=== PATIENT | male | born 1965 | race African-American/Black ===

== ENCOUNTER 2021-09-17 13:49 | Emergency (ER) | payer SELFPAY ==
[~2021-09-17] VITALS: Ht 165.1 cm; Wt 66.0 kg
[2021-09-17] MEDS ORDERED: KETOROLAC 60 MG/2 ML VIAL. IM ONE (16:00)
[2021-09-17] MEDS ORDERED: HYDROcodone/APAP 5/325MG 1 TAB TABLET PO ONE (16:00)
--- NOTE | 2021-09-17 16:34 | RAD ---
CT lumbar spine without contrast History: Back pain Axial helical images of the lumbar spine were obtained without contrast. Axial, coronal and sagittal reconstruction was performed. Findings: The vertebral bodies are aligned. There is no loss of vertebral body stature. Evaluation of the central canal is limited without contrast. There is diffuse circumferential disc bulge and hypertrophy of the facets and ligamentum flavum resul ting in mild central stenosis at L2-L3 and minimal central stenosis at L3-L4 and L4-L5. There is mode rate narrowing of multiple neuroforamen below the level of the exiting nerve roots. Impression: Mild degenerative changes. Mo acute findings. End impression PQRS Compliance Statement: One or more of the following individualized dose reduction techniques were utilized for this examinat ion: 1. Automated exposure control 2. Adjustment of the mA and/or kV according to patient size 3. Use of iterative reconstruction technique Electronically signed by: Romaine Collins III, MD (09/17/2021 4:32 PM) [facility]
--- NOTE | 2021-09-17 16:51 | RAD ---
AP pelvis and left hip AP lateral x-rays HISTORY: Fall, left hip pain. FINDINGS: No fracture. No dislocation. No arthritic change. No bone lesion evident. The soft tissues are unremarkable. IMPRESSION: No acute osseous injury. Electronically signed by: Garrett Gar MD (09/17/2021 4:49 PM) [facility]
--- NOTE | 2021-09-17 16:56 | RAD ---
EXAM: AP, oblique, lateral and sunrise views of the left knee. DATE: 09/17/2021 4:34 PM INDICATION: Reason: Fall. Left knee pain / Spl. Instructions: / History: COMPARISON: No Prior FINDINGS: No acute fracture or dislocation. No joint effusion. Mild medial compartment joint space with small tricompartmental osteophytes. Neutral patellar tracking. IMPRESSION: No acute fracture or dislocation. Moderate left knee joint osteoarthritis. Electronically signed by: Saw Petersen MD (09/17/2021 4:53 PM) [facility]
[2021-09-17 17:22] VITALS: BP 141/88
[2021-09-17] MEDS ORDERED: IBUP-1007 PO (17:29)
[2021-09-17] MEDS ORDERED: CYCL10TA2 PO (17:29)
[2021-09-17] MEDS ORDERED: HYDR-2761 PO (17:29)
--- NOTE | 2021-09-17 17:31 | PHYS DOC ---
Past Medical History Past Surgical History: Other Additional Past Surgical Histo: hernia, bilat wrist repairs Smoking Status: Current Every Day Smoker Alcohol Use: Occasionally General Adult EDM: Chief Complaint: MECHANICAL FALL HPI: HPI: Patient is a [age]-year-old male who presents to the emergency department reporting falling at a local convenience store. Patient reports pain to his left knee, left hip, and low back. Patient denies loss of consciousness or hitting his head. Patient denies other physical complaints or physical concerns Review of Systems: Review of Systems: 14 body systems of review of systems have been reviewed. See HPI for pertinent positives and negative responses, otherwise all other systems are negative, nonpertinent or noncontributory. Constitutional: Negative except as outlined in HPI above. Skin: Negative except as outlined in HPI above. Eyes: Negative except as outlined in HPI above. HENT: Negative except as outlined in HPI above. Respiratory: Negative except as outlined in HPI above. Cardiovascular: Negative except as outlined in HPI above. GI: Negative except as outlined in HPI above. : Negative except as outlined in HPI above. Musculoskeletal: Negative except as outlined in HPI above. Integument: Negative except as outlined in HPI above. Neurologic: Negative except as outlined in HPI above. Endocrine: Negative except as outlined in HPI above. Lymphatic: Negative except as outlined in HPI above. Psychiatric: Negative except as outlined in HPI above. Heart Score: C/O Chest Pain: No Risk Factors: Risk Factors: DM, Current or recent (<one month) smoker, HTN, HLP, family h istory of CAD, obesity. Risk Scores: Score 0 - 3: 2.5% MACE over next 6 weeks - Discharge Home Score 4 - 6: 20.3% MACE over next 6 weeks - Admit for Clinical Observation Score 7 - 10: 72.7% MACE over next 6 weeks - Early Invasive Strategies Current Medications: Current Medications Medications (Trade) Dose Ordered Sig/Luz Elena Start Time Stop Time Status Last Admin Dose Admin Acetaminophen/ Hydrocodone Bitart (Lortab 5/325) 2 tab 1X ONCE 09/17/21 16:00 09/17/21 16:01 DC 09/17/21 16:04 2 TAB Ketorolac Tromethamine (Toradol Im) 60 mg 1X ONCE 09/17/21 16:00 09/17/21 16:01 DC 09/17/21 16:03 60 MG Allergies: Allergies: Allergies Coded Allergies Type Severity Reaction Last Updated Verified No Known Drug Allergies 09/17/21 No Physical Exam: PE: Constitutional: Well developed, well nourished, no acute distress, non-toxic appearance. 56-year-old male in no apparent distress. Patient is complaint of pain exceeds patient's physical appearance and presentation. HENT: Normocephalic, atraumatic. No contusions to the scalp head or face appreciated. No raccoon eyes, no mcguire's sign, no drainage from bilateral external auditory canals, bilateral TMs within normal limits. Eyes: Conjunctiva normal, no discharge. Satisfactory 6 cardinal eye movements. Neck: Normal range of motion, no stridor. No midline spinal pain Cardiovascular: No cyanosis appreciated, distal cap refill less than 2 seconds. Lungs & Thorax: Patient is in no respiratory distress, no audible adventitious lung sounds appreciated. Abdomen: Nontender, no abnormalities noted. Skin: Warm, dry, no erythema, no rash. Back: No deformities appreciated, no crepitus appreciated, midline spinal pain at lumbar area to palpation, no crepitus appreciated. No bruising appreciated. No step-offs or deformities appreciated. Extremities: No tenderness, no cyanosis, no clubbing, ROM intact, no edema. Pain to left hip and left knee to palpation, limited passive range of motion related to pain. No contusions appreciated. No swelling or edema appreciated. Distal cap refill less than 2 seconds, 2+ dorsalis pedis/posterior tibial pulse. No loss of sensation distally. No instability of the knee joint appreciated with knee joint tests. Neurologic: Alert and oriented X 3, normal motor function, normal sensory function, no focal deficits noted. Psychologic: Affect normal, judgement normal, mood normal. Current Patient Data: Vital Signs: Vital Signs Date Time Temp Pulse Resp B/P (MAP) Pulse Ox O2 Delivery O2 Flow Rate FiO2 09/17/21 16:52 59 16 135/81 (99) 99 Room Air 09/17/21 15:00 99.0 99.0 EKG: EKG: [] Radiology/Procedures: Radiology/Procedures: PATIENT: RANULFO ENGLISH LACCOUNT: [id number] : 1965 LOCATION: ER AGE: 56 SEX: M EXAM STATUS: REG ER ORD. PHYSICIAN: SORAIDA MELGOZA APRN REASON: Fall. Left hip pain PROCEDURE: HIP LEFT 2V WITH PELVIS AP pelvis and left hip AP lateral x-rays HISTORY: Fall, left hip pain. FINDINGS: No fracture. No dislocation. No arthritic change. No bone lesion evident. The soft tissues are unremarkable. IMPRESSION: No acute osseous injury. Electronically signed by: Garrett Gar MD (09/17/2021 4:49 PM) [facility] REASON: Fall. Left knee pain PROCEDURE: KNEE LEFT 4V EXAM: AP, oblique, lateral and sunrise views of the left knee. DATE: 09/17/2021 4:34 PM INDICATION: Reason: Fall. Left knee pain / Spl. Instructions: / History: COMPARISON: No Prior FINDINGS: No acute fracture or dislocation. No joint effusion. Mild medial compartment joint space with small tricompartmental osteophytes. Neutral patellar tracking. IMPRESSION: No acute fracture or dislocation. Moderate left knee joint osteoarthritis. Electronically signed by: Saw Petersen MD (09/17/2021 4:53 PM) [facility] REASON: Fall low back pain PROCEDURE: CT LUMBAR SPINE WO CONTRAST CT lumbar spine without contrast History: Back pain Axial helical images of the lumbar spine were obtained without contrast. Axial, coronal and sagittal reconstruction was performed. Findings: The vertebral bodies are aligned. There is no loss of vertebral body stature. Evaluation of the central canal is limited without contrast. There is diffuse circumferential disc bulge and hypertrophy of the facets and ligamentum flavum resulting in mild central stenosis at L2-L3 and minimal central stenosis at L3-L4 and L4-L5. There is moderate narrowing of multiple neuroforamen below the level of the exiting nerve roots. Impression: Mild degenerative changes. Mo acute findings. End impression PQRS Compliance Statement: One or more of the following individualized dose reduction techniques were utilized for this examination: 1. Automated exposure control 2. Adjustment of the mA and/or kV according to patient size 3. Use of iterative reconstruction technique Electronically signed by: Romaine Collins III, MD (09/17/2021 4:32 PM) [facility] Course & Med Decision Making: Course & Med Decision Making Pertinent Labs and Imaging studies reviewed. (See chart for details) 56-year-old male, vital signs reviewed, presents to the emergency department reporting a slip and fall at a local convenience store prior to arrival. Patient reports severe left knee, left hip, and low back pain. Physical examination unremarkable, patient's complaint level of pain exceeds patient's physical presentation and examination, there is no contusions or physical abnormalities to suggest traumatic fall however related to patient's verbal complaints will order x-ray of left knee, left hip, and lumbar spine CT. Will give patient pain medication in the ED. After period of time will reevaluate and review patient radiologic imaging with patient. X-ray imaging negative for acute fracture, however does show arthritic changes. Discussed findings with patient, discussed prescribing pain medications with muscle relaxers at home to take for acute pain over the next several days, discussed side effects of new medications, follow-up with primary care for ongoing pain management, reviewed return to ER precautions and concerns, patient gave verbal understanding of and is amenable to ED discharge planning. Patient reported "some "pain relief with pain medicines given in the ED today. Discussed with the patient all findings and diagnostic testing as well as the need to follow-up with their primary care provider for further evaluation and treatment or return to the ED if any new or worsening symptoms. Strict return precautions were also discussed at length, the patient voiced understanding and agreement with the discharge planning. The patient was nontoxic in appearance, in no apparent distress, and hemodynamically stable at the time of disposition. Maria Fernanda Disclaimer: Maria Fernanda Disclaimer: This electronic medical record was generated, in whole or in part, using a voice recognition dictation system. Departure Departure Impression: Primary Impression: Left knee pain Qualified Codes: M25.562 - Pain in left knee Additional Impressions: Left hip pain Low back pain Qualified Codes: M54.50 - Low back pain, unspecified Disposition: HOME / SELF CARE / HOMELESS Condition: GOOD Referrals: NO PCP (PCP) Patient Instructions: Back Pain, Adult, Knee Pain Additional Instructions: You were seen in the emergency department today after reported fall. X-rays of your left knee, left hip and pelvis, and low back did not show any concerning findings or broken bones. It was revealed to you that there are some arthritic changes of the bones of these images. I recommend you follow-up with your primary care physician for ongoing pain management related to these arthritic change findings. I am prescribing you a muscle relaxer and pain medications to take for acute pain and discomfort at home, please take as directed. Do not operate heavy machinery or drive while on narcotic pain medications or muscle relaxers. I am providing you with a list of area primary care providers that specialize in family care, please choose 1 to see this week to establish primary care and for ongoing pain management. Return to the emergency department for worsening signs and symptoms such as severe pain uncontrolled with pain medications, decreased movement or ability to care for self, or other concerns. As we discussed at length, please use ice to the sore areas 30 minutes on and 30 minutes off while awake for the next 48 to 72 hours as this will assist in healing and pain control. Thank you for visiting our Emergency Department. It was a pleasure taking care of you today in the emergency department and we appreciate you trusting us with your care. If any additional problems come up don't hesitate to return to visit us. Please follow up with your primary care provider so they can plan additional care if needed and know about the problem that you had. If symptoms worsen come back to the Emergency Department. Any concerning symptoms that start such as chest pain, shortness of air, weakness or numbness on one side of the body, running high fevers or any other concerning symptoms return to the ER. EMERGENCY DEPARTMENT GENERAL DISCHARGE INSTRUCTIONS Thank you for coming to [facility] Emergency Department (ED) today and trusting us with you care. We trust that you had a positive experience in our Emergency Department. If you wish to speak to the department management, you may call the Director at [phone]. YOUR FOLLOW UP INSTRUCTIONS ARE FOLLOWS: 1. Do you have a private Doctor? If you do not have a private doctor, please ask for a resource list of physicians or clinics that may be able to assist you with follow up care. 2. The Emergency Physicain has interpreted your x-rays. The X-Ray specialist will also review them. If there is a change in the findings, you will be notified in 48 hours when at all possible. 3. A lab test or culture has been done, your results will be reviewed and you will be notified if you need a change in treatment. ADDITIONAL INSTRUCTIONS AND INFORMATION: 1. Your care today has been supervised by a physician who is specially trained in emergency care. Many problems require more than one evaluation for a complete diagnosis and treatment. We recommend that you schedule your follow up appointment as joey mmended to ensure complete treatment of you illness or injury. If you are unable to obtain follow up care and continue to have a problem, or if your condition worsens, we recommend that you return to the ED. 2. We are not able to safely determine your condition over the phone nor are we able to give sound medical advice over the phone. For these safety reasons, if you call for medical advice we will ask you to come to the ED for further evaluation. 3. If you have any questions regarding these discharge instructions please call the ED at [phone]. SAFETY INFORMATION: In the interest of safety, wellness, and injury prevention; we encourage you to wear your sealbelt, if you smoke; quite smoking, and we encourage family to use a protective helmet for bicycling and other sporting events that present an increased risk for head injury. IF YOUR SYMPTOMS WORSEN OR NEW SYMPTOMS DEVELOP, OR YOU HAVE CONCERNS ABOUT YOUR CONDITION; OR IF YOUR CONDITION WORSENS WHILE YOU ARE WAITING FOR YOUR FOLLOW UP APPOINTMENT; EITHER CONTACT YOUR PRIMARY CARE DOCTOR, THE PHYSICIAN WHOSE NAME AND NUMBER YOU WERE GIVEN, OR RETURN TO THE ED IMMEDIATELY. Scripts Hydrocodone Bit/Acetaminophen (HYDROCODONE-APAP 5-325 ) 1 Tab Tablet 1 TAB PO PRN Q6HRS PRN for PAIN, #15 TAB 0 Refills Prov: SORAIDA MELGOZA BELLOWS TESTER 09/17/21 Ibuprofen (IBUPROFEN) 600 Mg Tablet 600 MG PO PRN Q6HRS PRN for INFLAMMATION, #30 TAB 0 Refills Prov: SORAIDA MELGOZA BELLOWS TESTER 09/17/21 Cyclobenzaprine Hcl (CYCLOBENZAPRINE HCL) 10 Mg Tablet 10 MG PO TID for muscle cramping, #15 TAB 0 Refills Prov: SORAIDA MELGOZA BELLOWS TESTER 09/17/21 SORAIDA MELGOZA APRN Sep 17, 2021 17:31
== END 2021-09-17 17:39 | disposition home or self-care (01) ==
LOC: ER 13:49
DX: M25.562 Pain in left knee (principal); M25.552 Pain in left hip; M54.50 Low back pain, unspecified; G89.11 Acute pain due to trauma; F17.200 Nicotine dependence, unspecified, uncomplicated; W18.39XA Other fall on same level, initial encounter; Y93.89 Activity, other specified; Y92.512 Supermarket, store or market as the place of occurrence of the external cause; Y99.8 Other external cause status
CPT/HCPCS: 72131; 73502; 73564; 96372; 99285; J1885

== ENCOUNTER 2022-04-27 14:17 | Emergency (ER) | payer SELFPAY ==
[~2022-04-27] VITALS: Ht 167.6 cm; Wt 70.0 kg
[~2022-04-27 14:17] MED LIST: CYCL10TA19 PO; HYDR-2761 PO; IBUP-1007 PO
[2022-04-27] MEDS ORDERED: NALOXONE 0.4 MG/ML VIAL. IV ONE ×2 (14:30→15:45)
[2022-04-27 14:43] LABS: BASO % 1 % (0-3); EOS # 0.1 x10^3/uL (0.0-0.7); EOS % 3 % (0-3); HEMATOCRIT 37.4 % (39.0-53.0); HEMOGLOBIN 12.4 g/dL (13.0-17.5); LYMPH # 1.2 x10^3/uL (1.0-4.8); LYMPH % 36 % (24-48); MEAN CORPUSCULAR HEMOGLOBIN 31 pg (25-35); MEAN CORPUSCULAR HGB CONC 33 g/dL (31-37); MEAN CORPUSCULAR VOLUME 95 fL (79-100); MONO # 0.5 x10^3/uL (0.0-1.1); MONO % 14 % (0-9); NEUT # 1.6 x10^3/uL (1.8-7.7); NEUT % 47 % (31-73); PLATELET COUNT 180 x10^3/uL (140-400); RED BLOOD COUNT 3.96 x10^6/uL (4.30-5.70); RED CELL DISTRIBUTION WIDTH 16.2 % (11.5-14.5); WHITE BLOOD COUNT 3.5 x10^3/uL (4.0-11.0)
[2022-04-27 14:53] LABS: CALCIUM 7.8 mg/dL (8.5-10.1); CREATININE 0.9 mg/dL (0.7-1.3); POTASSIUM 3.9 mmol/L (3.5-5.1)
[2022-04-27 15:01] LABS: ACETAMIN < 2 mcg/ml (10-30); ETHANOL < 10 mg/dL (0-10); SALIC 1.5 mg/dL (2.8-20.0)
--- NOTE | 2022-04-27 16:14 | RAD ---
RS Compliance Statement: One or more of the following individualized dose reduction techniques were utilized for this examinat ion: 1. Automated exposure control 2. Adjustment of the mA and/or kV according to patient size 3. Use of iterative reconstruction technique CT HEAD WITHOUT CONTRAST History: Reason: AMS, somulent, / Spl. Instructions: / History: Comparison: None. Procedure: Axial images are obtained of the head from the skull base through the vertex without IV co ntrast. Findings: The ventricles and sulci are normal for the patient's age. No mass-effect, midline shift, hemorrhage, extra-axial fluid collection, or obvious acute infarction is identified. Basilar cisterns are patent. Bone windows demonstrate no acute calvarial abnormality. There is mucosal thickening of the bilateral ethmoid, bilateral sphenoid, and left maxillary sinus. T here is no air-fluid level.. Mastoid air cells are well aerated. IMPRESSION: No acute intracranial abnormality. Electronically signed by: Edward Jason MD (04/27/2022 4:11 PM) [facility]
--- NOTE | 2022-04-27 16:36 | PHYS DOC ---
Past Medical History Past Surgical History: No Surgical History Additional Past Surgical Histo: hernia, bilat wrist repairs Smoking Status: Unknown if ever smoked Alcohol Use: None General Adult EDM: Chief Complaint: OTHER COMPLAINTS HPI: HPI: Patient is a 57 year old male who presents with being altered. Patient was at a plasma donation site where they know him well. Apparently he tried to donate plasma but kept falling asleep. Patient is sleeping currently and is arousable only by sternal rub. Therefore I cannot obtain further history at this time. Review of Systems: Review of Systems: Cannot obtain due to acuity of condition Heart Score: C/O Chest Pain: No Risk Factors: Risk Factors: DM, Current or recent (<one month) smoker, HTN, HLP, family history of CAD, obesity. Risk Scores: Score 0 - 3: 2.5% MACE over next 6 weeks - Discharge Home Score 4 - 6: 20.3% MACE over next 6 weeks - Admit for Clinical Observation Score 7 - 10: 72.7% MACE over next 6 weeks - Early Invasive Strategies Current Medications: Current Medications Medications (Trade) Dose Ordered Sig/Luz Elena Start Time Stop Time Status Last Admin Dose Admin Naloxone HCl (Narcan) 2 mg 1X ONCE 04/27/22 15:45 04/27/22 15:46 DC 04/27/22 15:46 2 MG Allergies: Allergies: Allergies Coded Allergies Type Severity Reaction Last Updated Verified No Known Drug Allergies 04/27/22 No Physical Exam: PE: Constitutional: Well developed, well nourished, no acute distress, non-toxic appearance. [] HENT: Normocephalic, atraumatic, bilateral external ears normal, oropharynx moist, no oral exudates, nose normal. [] Eyes: PERRLA, EOMI, conjunctiva normal, no discharge. [] Neck: Normal range of motion, no tenderness, supple, no stridor. [] Cardiovascular:Heart rate regular rhythm, no murmur [] Lungs & Thorax: Bilateral breath sounds clear to auscultation [] Abdomen: Bowel sounds normal, soft, no tenderness, no masses, no pulsatile masses. [] Skin: Warm, dry, no erythema, no rash. [] Back: No tenderness, no CVA tenderness. [] Extremities: No tenderness, no cyanosis, no clubbing, ROM intact, no edema. [] Neurologic: Somnolent and snoring and arousable only to sternal rub Current Patient Data: Labs: Laboratory Tests Test 04/27/22 14:32 White Blood Count 3.5 x10^3/uL (4.0-11.0) L Red Blood Count 3.96 x10^6/uL (4.30-5.70) L Hemoglobin 12.4 g/dL (13.0-17.5) L Hematocrit 37.4 % (39.0-53.0) L Mean Corpuscular Volume 95 fL (79-100) Mean Corpuscular Hemoglobin 31 pg (25-35) Mean Corpuscular Hemoglobin Concent 33 g/dL (31-37) Red Cell Distribution Width 16.2 % (11.5-14.5) H Platelet Count 180 x10^3/uL (140-400) Neutrophils (%) (Auto) 47 % (31-73) Lymphocytes (%) (Auto) 36 % (24-48) Monocytes (%) (Auto) 14 % (0-9) H Eosinophils (%) (Auto) 3 % (0-3) Basophils (%) (Auto) 1 % (0-3) Neutrophils # (Auto) 1.6 x10^3/uL (1.8-7.7) L Lymphocytes # (Auto) 1.2 x10^3/uL (1.0-4.8) Monocytes # (Auto) 0.5 x10^3/uL (0.0-1.1) Eosinophils # (Auto) 0.1 x10^3/uL (0.0-0.7) Basophils # (Auto) 0.0 x10^3/uL (0.0-0.2) Sodium Level 142 mmol/L (136-145) Potassium Level 3.9 mmol/L (3.5-5.1) Chloride Level 107 mmol/L (98-107) Carbon Dioxide Level 25 mmol/L (21-32) Anion Gap 10 (6-14) Blood Urea Nitrogen 17 mg/dL (8-26) Creatinine 0.9 mg/dL (0.7-1.3) Estimated GFR (Cockcroft-Gault) 106.0 Glucose Level 138 mg/dL (70-99) H Calcium Level 7.8 mg/dL (8.5-10.1) L Troponin I High Sensitivity 9 ng/L (4-75) Thyroid Stimulating Hormone (TSH) 1.013 uIU/mL (0.358-3.74) Salicylates Level 1.5 mg/dL (2.8-20.0) L Salicylate Last Dose Date Unknown Salicylate Last Dose Time Unknown Acetaminophen Level < 2 mcg/ml (10-30) L Acetaminophen Last Dose Date Unknown Acetaminophen Last Dose Time Unknown Ethyl Alcohol Level < 10 mg/dL (0-10) Laboratory Tests 04/27/22 14:32 Laboratory Tests 04/27/22 14:32 Vital Signs: Vital Signs Date Time Temp Pulse Resp B/P (MAP) Pulse Ox O2 Delivery O2 Flow Rate FiO2 04/27/22 15:43 70 18 142/68 (92) 99 Room Air 04/27/22 14:24 98.6 98.6 EKG: EKG: [] Radiology/Procedures: Radiology/Procedures: [] Course & Med Decision Making: Course & Med Decision Making Pertinent Labs and Imaging studies reviewed. (See chart for details) Patient appears intoxicated but has no history of trauma per EMS and plasma center personnel. Therefore I obtained a CT of his head and labs which did not show any acute finding. Patient is still somnolent and did not become aroused by any Narcan. Will sign off to oncoming physician. Maria Fernanda Disclaimer: Maria Fernanda Disclaimer: This electronic medical record was generated, in whole or in part, using a voice recognition dictation system. Departure Departure Impression: Primary Impression: Intoxication Disposition: 30 STILL A PATIENT Referrals: NO PCP (PCP) SILVER JERNIGAN MD April 27, 2022 16:36
[2022-04-27 17:21] LABS: BARBITURATES NEG (NEG); BENZODIAZEPINES NEG (NEG); CANNABINOIDS POS (NEG); COCAINE POS (NEG); METHADONE NEG (NEG); OPIATES NEG (NEG); PHENCYCLIDINE NEG (NEG)
[2022-04-27 17:22] LABS: AMPHETAMINE/METHAMPHETAMINE NEG (NEG)
[2022-04-27 23:35] VITALS: BP 120/73
--- NOTE | 2022-04-28 09:08 | EKG ---
[facility] [address] [place] [address] Test Date: 2022-04-27 Test Time: 14:39:03 Pat Name: RANULFO ENGLISH Department: Room: Gender: M [employer] Supervisor: : 1965 Requested By: SILVER JERNIGAN Order Number: [id number] Reading MD: Shar Martinez MD Measurements Intervals [place] Rate: 76 P: 56 DE: 142 QRS: 9 QRSD: 86 T: 50 QT: 388 QTc: 441 Interpretive Statements SINUS RHYTHM Electronically Signed On 04-28-2022 10:56:43 CDT by Shar Martinez MD
== END 2022-04-28 | disposition still patient (30) ==
LOC: ER 14:17
DX: F10.129 Alcohol abuse with intoxication, unspecified (principal); Y90.0 Blood alcohol level of less than 20 mg/100 ml
CPT/HCPCS: 36415; 70450; 80048; 80307; 80329; 84443; 84484; 85025; 93005; 96374; 96376; 99285; G0480; J2310